=== PATIENT | female | born 1985 | race Caucasian/White ===

== ENCOUNTER 2017-01-04 16:58 | Inpatient (IN) | payer OTHER ==
[~2017-01-04] VITALS: Ht 157.5 cm; Wt 81.6 kg
[~2017-01-04 16:58] MED LIST: ANAP550T PO; OXYC-360 PO; PREN0.01 PO; SENN1TAB11 PO
[2017-01-04] MEDS ORDERED: LACTATED RINGER'S 1000 ML INJ 1,000 ML IV ONE (18:42)
--- NOTE | 2017-01-04 18:42 | PD ---
HPI Chief Complaint I am overdue Date Seen: Jan 04, 2017 Time Seen: 18:30 Travel History International Travel<30 Days: No Contact w/Intl Traveler<30Days: No Known Affected Area: No History of Present Illness HPI 31-year-old white female who is at 41 weeks and 6 days today. Her due date is based on a 12 week ultrasound and a last menstrual cycle. Patient was seen approximately 3 weeks ago for a consult and she had desired to attempt a vaginal delivery after section. Patient shows no signs of labor at this time and desires repeat section. I reviewed an ultrasound from that showed an LINCOLN of 7. Patient last ate lunch at noon. She ate a small cookie at 3 PM. Para: 1 : 2 History Past Medical History Medical History: Denies Significant Hx Obstetric History Obstetric History Previous section done due to intolerance of labor and chorioamnionitis Past Surgical History Narrative Surgical section Family History Family History: Negative Social History Alcohol Use: No Tobacco Use: No Substance Abuse: No Allergies-Medications (Allergen,Severity, Reaction): Coded Allergies: No Known Allergies (Verified Allergy, Mild, 07/02/06) Home Meds Reported Medications Docusate Sod/Senna (Senna Plus 8.6-50 mg)1 Tab Tab1 Tab PO HSPRN #20 12/15/12 Naproxen Sodium (Anaprox Ds)550 Mg [id number] Mg PO Q8HPRN 12/15/12 Oxycodone/Acetaminophen (Percocet)5 Mg/325 Mg Tab1 Tab PO Q4HPRN #20 FOR PAIN 12/15/12 Multivit/Min/Fol Ac/Iron/Pren ( Vit ( Plus)) Tab1 Tab PO DAILY #30 12/13/12 Review of Systems Except as stated in HPI: all other systems reviewed are Neg Physical Exam Narrative GENERAL: Well-nourished, well-developed patient. SKIN: Warm and dry. HEAD: Normocephalic and atraumatic. EYES: No scleral icterus. No injection or drainage. ENT: No nasal drainage noted. Mucous membranes pink. Airway patent. NECK: Supple, trachea midline. No JVD. CARDIOVASCULAR: Regular rate and rhythm without murmurs, gallops, or rubs. RESPIRATORY: Breath sounds equal bilaterally. No accessory muscle use. BREASTS: Bilateral exam showed no masses , no retractions, no nipple discharge. ABDOMEN/GI: Abdomen soft, non-tender, bowel sounds present, no rebound, no guarding Gravid to [-40] weeks size Fundal Height: [-] GENITOURINARY: External Genitalia: intact and normal in appearance BUS glands: [Normal-] Cervix: [-] Dilatation: [3-] Effacement: [75-] Station: [--2] Presentation: [-Vertex] Membranes: Intact Uterine Contractions: Irregular FHT's: Category: [-1] Baseline: 140 Reactive: Reactive Variability: Moderate Decels: Absent EXTREMITIES: No cyanosis or edema. BACK: Nontender without obvious deformity. No CVA tenderness. NEUROLOGICAL: Awake and alert. Motor and sensory grossly within normal limits. Five out of 5 muscle strength in all muscle groups. Normal speech. Data Data Orders Ob (2e) Additional Admit Info (01/04/17 18:34) MDM Narrative Course / MDM Patient is a 41 weeks and 6 days with previous section. Most recent ultrasound done almost 2 weeks ago shows an LINCOLN of 7.0. Would recommend repeat section today Diagnosis Diagnosis: Primary Impression: Previous delivery, antepartum Additional Impression: 41 weeks gestation of Tanvi Ellsworth MD Jan 04, 2017 18:42
[2017-01-04] MEDS ORDERED: DICLOFENAC SODIUM 37.5 MG/ML VIAL IV PUSH ONE (19:09)
[2017-01-04] MEDS ORDERED: OXYTOCIN 10 UNIT/ML AMP ONE (19:10)
[2017-01-04] MEDS ORDERED: LACTATED RINGER'S 1000 ML INJ 1,000 ML IV SCH (19:12)
[2017-01-04 19:18] LABS: AUTOMATED NEUTROPHIL # 6.1 TH/MM3 (1.8-7.7); BASOPHIL % 0.3 % (0.0-2.0); EOSINOPHIL % 0.1 % (0.0-4.0); HEMO FLAGS DIFF FINAL; LYMPH % 21.4 % (9.0-44.0); LYMPHOCYTE # 1.9 TH/MM3 (1.0-4.8); MEAN CORPUSCULAR HEMOGLOBIN 29.7 PG (27.0-34.0); MEAN CORPUSCULAR HGB CONC 33.7 % (32.0-36.0); MONO % 11.1 % (0.0-8.0); NEUT % 67.1 % (16.0-70.0); PLATELET COUNT 164 TH/MM3 (150-450); RED BLOOD COUNT 4.55 MIL/MM3 (4.00-5.30); RED CELL DISTRIBUTION WIDTH 13.3 % (11.6-17.2); WHITE BLOOD COUNT 9.1 TH/MM3 (4.0-11.0)
[2017-01-04 19:37] LABS: BACTERIA, URINE RARE /hpf; BLOOD, URINE TRACE (NEG); COMMENT (UR) CULTURE INDICATED; CULTURE IF INDICATED CULTURE INDICATED; GLUCOSE,URINE NEG (NEG); KETONE, URINE NEG (NEG); NITRITE,URINE NEG (NEG); PH, URINE 5.5 (5.0-8.5); SQUAMOUS EPITHELIAL CELL URINE 3 /hpf (0-5); URINE COLOR LIGHT-YELLOW (YELLW/STRAW)
[2017-01-04] MEDS ORDERED: ceFAZolin 2 GM PREMIX 50 ML IV SCH (19:45)
[2017-01-04] MEDS ORDERED: CITRIC ACID-SODIUM CITRATE LIQ 30 ML UDC PO SCH (20:15)
[2017-01-04] MEDS ORDERED: DICLOFENAC SODIUM 37.5 MG/ML VIAL IV PUSH SCH (20:20)
[2017-01-04 20:56] VITALS: BP 106/64; PULSE 73; RESP 18; TEMP 97.9; O2SAT 93
[2017-01-04] MEDS ORDERED: MORPHINE SULFATE PF 5 MG/10 ML VIAL ONE (20:57)
--- NOTE | 2017-01-04 20:59 | PD.OB.DELI ---
Procedure Note Section Procedure Pre Op Diagnosis #1. 41-42 weeks gestation #2 previous section for repeat Post Op Diagnosis: Post Op Diagnosis Same Performed by Tanvi Ellsworth Procedure: Repeat Low Transverse Sec Indication for delivery: Desired elective repeat , Other Informed consent obtained: For anesthesia, For procedure Confirmed correct: Time-out taken Anesthesia: Spinal Medication prior to procedure: As documented in eMAR Monitoring during procedure: Blood pressure monitoring, Pulse oximetry Urinary catheter: Inserted using sterile technique Sterile preparation: Duraprep Position: Supine with wedge to left side Operative Features Skin Incision: Pfannenstiel Uterine Incision: Low transverse w/knife / blunt ext Membranes Ruptured: Previously Presentation: Occiput anterior, Vertex Time of : 20:19 Delivery of infant: Uneventful Infant: Female One Minute : 8 Five Minute : 8 Weight: 3500 g 7 lbs. 11 oz. Status of : Viable Placenta delivered: Intact Medications: Antibiotics Estimated blood loss: 1000 cc Procedure tolerated: Well Maternal Condition: Stable Condition: Stable Tanvi Ellsworth MD Jan 04, 2017 20:59
[2017-01-04] MEDS ORDERED: OXYTOCIN 30 UNITS-500ML PREMIX 500 ML IV ONE (21:00)
[2017-01-04] MEDS ORDERED: SIMETHICONE 80 MG CHEWABLE TAB PO PRN (21:00)
[2017-01-04] MEDS ORDERED: SODIUM CHLORIDE 0.9% FLUSH 5 ML FLUSH IV SCH (21:00)
[2017-01-04] MEDS ORDERED: SODIUM CHLORIDE 0.9% FLUSH 5 ML FLUSH IV PRN (21:00)
[2017-01-04] MEDS ORDERED: oxyCODONE/ACETAMINOPHEN 5 MG/325 MG TAB PO PRN (21:00)
[2017-01-04] MEDS ORDERED: ONDANSETRON HCL 4 MG/2 ML VIAL IV PUSH PRN (21:00)
[2017-01-04 21:15] VITALS: BP 118/73; PULSE 67; RESP 18; O2SAT 99
[2017-01-04 21:30] VITALS: BP 113/72; PULSE 66; RESP 18; O2SAT 99
[2017-01-04 21:45] VITALS: BP 123/76; PULSE 71; RESP 18; O2SAT 99
[2017-01-04 22:00] VITALS: BP 126/81; PULSE 71; RESP 18; TEMP 98.1; O2SAT 99
[2017-01-04 22:15] VITALS: BP 124/78; PULSE 70; RESP 18; O2SAT 99
[2017-01-04] MEDS ORDERED: OXYTOCIN 30 UNITS-500ML PREMIX 500 ML ONE (22:42)
[2017-01-04] MEDS ORDERED: EPIDURAL-NALOXONE HCL 0.4 MG/ML AMP IV PRN (23:00)
[2017-01-04] MEDS ORDERED: EPIDURAL-DO NOT ADMINISTER ANTICOAGULANTS XX PRN (23:00)
[2017-01-04] MEDS ORDERED: EPIDURAL-NO SYSTEMIC NARCOTICS XX PRN (23:00)
[2017-01-04] MEDS ORDERED: EPIDURAL-DIPHENHYDRAMINE HCL 50 MG CAP PO PRN (23:00)
[2017-01-04] MEDS ORDERED: EPIDURAL-DIPHENHYDRAMINE HCL 50 MG/ML VIAL IV PUSH PRN (23:00)
[2017-01-05] VITALS: BP 124/72; PULSE 66; RESP 40; TEMP 98.2
[2017-01-05] MEDS ORDERED: LACTATED RINGER'S 1000 ML INJ 1,000 ML IV SCH (01:53)
[2017-01-05 04:00] VITALS: BP 105/59; PULSE 69; RESP 20; TEMP 98.3
[2017-01-05 06:07] LABS: AUTOMATED NEUTROPHIL # 16.1 TH/MM3 (1.8-7.7); BASOPHIL % 0.2 % (0.0-2.0); HEMATOCRIT 38.6 % (35.0-46.0); HEMO FLAGS DIFF FINAL; LYMPH % 7.4 % (9.0-44.0); LYMPHOCYTE # 1.4 TH/MM3 (1.0-4.8); MEAN CELL VOLUME 88.8 FL (80.0-100.0); MEAN CORPUSCULAR HEMOGLOBIN 29.8 PG (27.0-34.0); MEAN CORPUSCULAR HGB CONC 33.6 % (32.0-36.0); MONO % 5.5 % (0.0-8.0); NEUT % 86.9 % (16.0-70.0); PLATELET COUNT 170 TH/MM3 (150-450); RED BLOOD COUNT 4.35 MIL/MM3 (4.00-5.30); RED CELL DISTRIBUTION WIDTH 13.3 % (11.6-17.2); WHITE BLOOD COUNT 18.5 TH/MM3 (4.0-11.0)
[2017-01-05] MEDS ORDERED: OXYTOCIN 30 UNITS-500ML PREMIX 500 ML IV PRN (07:00)
--- NOTE | 2017-01-05 07:25 | HHI.OB ---
Subjective Remarks 31 year old POD 1 after due to previous . Doing well this morning. Pain well controlled with ibuprofen. exclusively. She is ambulating. Lochia is minimal. She is a patient of Mackenzie Chaudhry. She is doing well. (Fabián Edwards MD R2) Objective Vitals/I&O Vital Signs Date Time Temp Pulse Resp B/P Pulse Ox O2 Delivery O2 Flow Rate FiO2 01/04/17 22:15 18 99 01/04/17 22:15 70 124/78 01/04/17 22:00 98.1 01/04/17 22:00 71 18 126/81 99 01/04/17 21:45 71 123/76 99 01/04/17 21:45 18 01/04/17 21:30 113/72 01/04/17 21:30 66 18 99 01/04/17 21:15 67 118/73 01/04/17 21:15 18 99 01/04/17 20:56 97.9 73 18 106/64 93 (Fabián Edwards MD R2) Result Diagram: 01/05/17 0509 Objective Remarks GENERAL: Well-nourished, well-developed patient. CARDIOVASCULAR: Regular rate and rhythm without murmurs, gallops, or rubs. RESPIRATORY: Breath sounds equal bilaterally. No accessory muscle use. ABDOMEN/GI: Abdomen soft, non-tender, bowel sounds present. Incision: Clean, dry and intact. Fundus: Firm, non-tender at umbilicus. GENITOURINARY: Light to moderate bleeding. EXTREMITIES: No cyanosis or edema, non-tender, without signs of DVT. Medications and IVs Current Medications Medications (Trade) Dose Ordered Sig/Milly Route Start Time Stop Time Status Last Admin Lactated Ringer's 1,000 ml @ 150 mls/hr Q6H40M IV 01/04/17 19:12 (Lr 1000 ml Inj) 1,000 ml @ 100 mls/hr Q10H IV 01/05/17 01:53 01/05/17 21:52 01/05/17 02:43 (NS Flush) 2 ml BID IV 01/04/17 21:00 (NS Flush) 2 ml UNSCH PRN IV 01/04/17 21:00 01/05/17 04:40 (Mylicon Chew) 80 mg QID PRN PO 01/04/17 21:00 (Motrin) 600 mg Q6H PRN PO 01/04/17 21:00 (Percocet 5-325 Mg) 1 tab Q4H PRN PO 01/04/17 21:00 (Percocet 5-325 Mg) 2 tab Q4H PRN PO 01/04/17 21:00 (M-M-R Ii Inj) 0.5 ml ONCE ONCE SQ 01/05/17 16:00 01/05/17 16:01 (Boostrix Inj) 0.5 ml ONCE ONCE IM 01/05/17 16:00 01/05/17 16:01 (Zofran Inj) 4 mg Q6H PRN IV PUSH 01/04/17 21:00 (Dyloject Inj) 37.5 mg Q8H IV PUSH 01/04/17 20:20 01/05/17 12:21 01/05/17 04:40 Miscellaneous Information NO SYSTEMIC NARCOTICS TO BE GIVEN FO... UNSCH PRN XX 01/04/17 23:00 01/05/17 22:59 (Narcan Inj) 0.4 mg UNSCH PRN IV 01/04/17 23:00 01/05/17 22:59 (Benadryl Inj) 25 mg Q6H PRN IV PUSH 01/04/17 23:00 01/05/17 22:59 (Benadryl) 50 mg Q6H PRN PO 01/04/17 23:00 01/05/17 22:59 Miscellaneous Information ALL NURSING DEPARTMENTS UNSCH PRN XX 01/04/17 23:00 01/05/17 22:59 (Fabián Edwards MD R2) Assessment/Plan Assessment and Plan 31 year old POD 1 after for previous - Post op hemoglobin 12.9 from 13.5. - Encourage exclusive - Monitor lochia - Ibuprofen for pain control, Percocet only if needed. - Encourage ambulation - D/c next one to two days Discussed with Dr. Ellsworth (Fabián Edwards MD R2) Attestation Patient seen, agree with management plan. POD #1 doing well (Tanvi Ellsworth MD) Fabián Edwards MD R2 Jan 05, 2017 07:25 Tanvi Ellsworth MD Jan 05, 2017 08:16
[2017-01-05 08:22] VITALS: BP 108/62; PULSE 70; RESP 18; TEMP 98
[2017-01-05] MEDS ORDERED: MEASLES, MUMPS, RUBELLA VACCINE 0.5 ML VIAL SQ ONE (16:00)
[2017-01-05] MEDS ORDERED: DIPHTH/TETANUS/ACEL PERTUSSIS (BOOSTER) 0.5 ML VIAL/PFS IM ONE (16:00)
[2017-01-05] MEDS: IBUPROFEN 600 MG TAB PO PRN (20:10)
[2017-01-05 20:12] VITALS: BP 103/62; PULSE 70; RESP 16; TEMP 97.8
[2017-01-05] MEDS: oxyCODONE/ACETAMINOPHEN 5 MG/325 MG TAB PO PRN (21:49)
[2017-01-06] MEDS: IBUPROFEN 600 MG TAB PO PRN ×3 (06:31→22:31)
[2017-01-06] MEDS: oxyCODONE/ACETAMINOPHEN 5 MG/325 MG TAB PO PRN ×3 (06:31→19:10)
[2017-01-06 08:25] VITALS: BP 110/78; PULSE 82; RESP 18; TEMP 98.3
--- NOTE | 2017-01-06 09:38 | HHI.OB ---
Subjective Post Operative Day: 2 Remarks Ms. Sahu is POD 2 from repeat CS. Patient reports that she is doing well overall at this time, and that her pain medications are working. Patient denies significant vaginal bleeding. Patient is ambulating well. Patient urinating well without dysuria. Patient passing gas but does not have bowel movement. Patient is breast-feeding; no concerns noted. No shortness of breath, chest pain , leg swelling, or other symptoms. Patient requests discharge home today. ( Ozzie Gamble MD R2) Remarks Patient seen and evaluated with resident under direct supervision, agree with assessment and plan. (Aquiles Skelton MD) Objective Vitals/I&O Vital Signs Date Time Temp Pulse Resp B/P Pulse Ox O2 Delivery O2 Flow Rate FiO2 01/06/17 08:25 110/78 01/06/17 08:25 98.3 82 18 01/05/17 21:10 18 01/05/17 20:12 97.8 70 16 103/62 (Ozzie Gamble MD R2) Result Diagram: 01/05/17 0509 Objective Remarks GENERAL: Well-nourished, well-developed patient. CARDIOVASCULAR: Regular rate and rhythm without murmurs. RESPIRATORY: Breath sounds equal bilaterally. No accessory muscle use. ABDOMEN/GI: Abdomen soft, non-tender, bowel sounds present. Incision: Clean, dry and intact. Fundus: Mild tenderness at umbilicus. GENITOURINARY: Light to moderate bleeding. EXTREMITIES: No cyanosis or edema, non-tender, without signs of DVT. Medications and IVs Current Medications Medications (Trade) Dose Ordered Sig/Milly Route Start Time Stop Time Status Last Admin (Lr 1000 ml Inj) 1,000 ml @ 150 mls/hr Q6H40M IV 01/04/17 19:12 (NS Flush) 2 ml BID IV 01/04/17 21:00 (NS Flush) 2 ml UNSCH PRN IV 01/04/17 21:00 01/05/17 04:40 (Mylicon Chew) 80 mg QID PRN PO 01/04/17 21:00 (Motrin) 600 mg Q6H PRN PO 01/04/17 21:00 01/06/17 06:31 (Percocet 5-325 Mg) 1 tab Q4H PRN PO 01/04/17 21:00 01/06/17 06:31 (Percocet 5-325 Mg) 2 tab Q4H PRN PO 01/04/17 21:00 (Zofran Inj) 4 mg Q6H PRN IV PUSH 01/04/17 21:00 (Ozzie Gamble MD R2) Assessment/Plan Problem List: (1) care following delivery Assessment and Plan 31 year old POD 2 after for previous - Reassuring Hgb post-operatively (12.9 from 13.5) - Planned follow-up with OB in 1 week to assess incision - Continue breast feeding - Monitor lochia -Patient counselled regarding signs of illness and reasons to seek emergency carre - Ibuprofen for pain control - D/c today Discussed with Dr. Skelton (Ozzie Gamble MD R2) Ozzie Gamble MD R2 Jan 06, 2017 09:38 Aquiles Skelton MD Jan 12, 2017 11:50
--- NOTE | 2017-01-06 09:39 | HHI.DCPOC ---
Discharge Care Plan Diagnosis: (1) care following delivery Goals to Promote Your Health * To prevent worsening of your condition and complications * To maintain your health at the optimal level Directions to Meet Your Goals Take your medications as prescribed Follow your dietary instruction Follow activity as directed Keep your appointments as scheduled Take your immunizations and boosters as scheduled If your symptoms worsen call your PCP, if no PCP go to Urgent Care Center or Emergency Room Smoking is Dangerous to Your Health. Avoid second hand smoke Call the 24-hour hour crisis hotline for domestic abuse at Ozzie Gamble MD R2 Jan 06, 2017 09:39
[2017-01-06] MEDS ORDERED: OXYC1TAB63 PO (09:41)
[2017-01-06] MEDS ORDERED: IBUP-232 PO (09:41)
[2017-01-07] MEDS: oxyCODONE/ACETAMINOPHEN 5 MG/325 MG TAB PO PRN ×2 (01:27→07:11)
[2017-01-07 02:27] VITALS: RESP 16
--- NOTE | 2017-01-07 07:14 | HHI.OB ---
Subjective Remarks 31 year old post op day 3 after due to previous . Pain is well controlled. She is ambulating. She has no calf tenderness. She is . Lochia is minimal. She plans to follow up with [facility] Chaudhry. She is very upset as she just learned her baby has tetralogy of Fallot and needs surgery. Objective Vitals/I&O Vital Signs Date Time Temp Pulse Resp B/P Pulse Ox O2 Delivery O2 Flow Rate FiO2 01/07/17 02:27 16 01/06/17 23:31 16 01/06/17 08:25 110/78 01/06/17 08:25 98.3 82 18 Result Diagram: 01/05/17 0509 Objective Remarks GENERAL: Well-nourished, well-developed patient. CARDIOVASCULAR: Regular rate and rhythm without murmurs. RESPIRATORY: Breath sounds equal bilaterally. No accessory muscle use. ABDOMEN/GI: Abdomen soft, non-tender, bowel sounds present. Incision: Clean, dry and intact. Fundus: Mild tenderness at umbilicus. GENITOURINARY: Light to moderate bleeding. EXTREMITIES: No cyanosis or edema, non-tender, without signs of DVT. Medications and IVs Current Medications Medications (Trade) Dose Ordered Sig/Milly Route Start Time Stop Time Status Last Admin (Lr 1000 ml Inj) 1,000 ml @ 150 mls/hr Q6H40M IV 01/04/17 19:12 (NS Flush) 2 ml BID IV 01/04/17 21:00 (NS Flush) 2 ml UNSCH PRN IV 01/04/17 21:00 01/05/17 04:40 (Mylicon Chew) 80 mg QID PRN PO 01/04/17 21:00 (Motrin) 600 mg Q6H PRN PO 01/04/17 21:00 01/06/17 22:31 (Percocet 5-325 Mg) 1 tab Q4H PRN PO 01/04/17 21:00 01/07/17 01:27 (Percocet 5-325 Mg) 2 tab Q4H PRN PO 01/04/17 21:00 (Zofran Inj) 4 mg Q6H PRN IV PUSH 01/04/17 21:00 Assessment/Plan Problem List: (1) care following delivery Assessment and Plan 31 year old POD 2 after for previous - Planned follow-up with OB in 1 week to assess incision - Continue breast feeding - Monitor lochia -Patient counselled regarding signs of illness and reasons to seek emergency carre - Ibuprofen and Percocet PRN for pain control - D/c today Discussed with Dr. Fred Edwards,Fabián Arguello MD R2 Jan 07, 2017 07:14
[2017-01-07] MEDS: IBUPROFEN 600 MG TAB PO PRN (13:23)
== END 2017-01-07 16:08 | disposition home or self-care (01) | DRG 766 ==
LOC: HOBED 16:58 → H2EB 18:35 → H1EA 22:53
PROVIDERS: ADMIT Obstetrics & Gynecology Obstetrics; ATTEND Obstetrics & Gynecology Obstetrics
PROC: 10D00Z1 Extraction of Products of Conception, Low, Open Approach (ICD-10-PCS; principal; 2017-01-04)
DX: O34.211 Maternal care for low transverse scar from previous cesarean delivery (principal); O48.0 Post-term pregnancy; Z37.0 Single live birth; Z3A.41 41 weeks gestation of pregnancy
CPT/HCPCS: 81001; 85025; 85461; 86077; 86850; 86870; 86900; 86901; 86920; 86922; 87086; 90384; 99285; J0690; J1130; J2274; J2590; J2790; J7120